=== PATIENT | female | born 1990 ===

== ENCOUNTER 2017-02-14 12:56 | Emergency (ER) | payer MEDICAID ==
[2017-02-14 13:25] VITALS: BMI 26.8
[2017-02-14] MEDS ORDERED: Sodium Chloride 0.9% 1,000 ML IV STA (13:42)
--- NOTE | 2017-02-14 13:45 | ED PDOC ---
Arrival/HPI - General Chief Complaint: Flu-like Symptoms Time Seen by Provider: 02/14/17 13:33 Historian: Patient - History of Present Illness Narrative History of Present Illness (Text): 02/14/17 13:40 26 year old female, whose past medically history includes anemia and asthma, presents to the emergency department complaining of fever, nausea, vomiting, and body aches for the past 3 days. Patient states she was hospitalized 3 years ago for an uncertain stomach infection. She states she took Motrin 1 1/2 hours ago with no relief. Patient also reports constipation and headaches, but denies any chills, chest pain, shortness of breath, diarrhea, urinary symptoms, back pain, neck pain, dizziness, or any other complaints. PMD: Dr. Cruz Past Medical History - Provider Review Nursing Documentation Reviewed: Yes - Infectious Disease Hx of Infectious Diseases: None - Reproductive Menopause: No - Pulmonary Hx Respiratory Disorders: Yes - Hematological/Oncological Hx Anemia: Yes - Psychiatric Hx Substance Use: No - Anesthesia Hx Anesthesia: No Hx Anesthesia Reactions: No Hx Malignant Hyperthermia: No Family/Social History - Physician Review Nursing Documentation Reviewed: Yes Family/Social History: No Known Family HX Smoking Status: Never Smoked Hx Alcohol Use: No Hx Substance Use: No Allergies/Home Meds Allergies/Adverse Reactions: Allergies nut - unspecified Allergy (Verified 02/14/17 13:33) RASH Review of Systems - Physician Review All systems were reviewed & negative as marked: Yes - Review of Systems Respiratory: absent: SOB Cardiovascular: absent: Chest Pain Physical Exam - Physical Exam Narrative Physical Exam (Text): Constitutional: No acute distress. Head: Normocephalic. Atraumatic. Eyes: PERRL. ENT: Moist mucous membranes. Neck: Supple. Cardiovascular: Tachycardia Chest: No tenderness. Respiratory: Clear to auscultation bilaterally. GI: Soft. Nontender. Nondistended. Back: No CVA tenderness. Musculoskeletal: No tenderness or swelling of extremities. Skin: No rash. Neurologic: Alert, no focal deficit. Vital Signs Temp Pulse Resp BP Pulse Ox 02/14/17 15:23 99.0 F 97 H 16 113/69 99 02/14/17 15:02 99.9 F H 02/14/17 14:57 99.9 F H 100 H 16 97 02/14/17 14:02 101.6 F H 02/14/17 13:25 101.6 F H 120 H 20 121/71 99 Medical Decision Making ED Course and Treatment: 02/14/17 13:41 Plan: -- VBG -- EKG -- Labs -- IV Fluids -- Tylenol -- Zofran Inj -- Influenza A B -- HCG, Qualit -- Urinalysis -- Angio Chest PE Protocol CT -- Reassess and disposition Progress Notes: 02/14/17 14:08 EKG shows NSR at [address] elevations. Interpreted by me. 02/14/17 15:24 MPRESSION: No active disease. 02/14/17 18:21 PULMONARY ARTERIES: The visualized portions of the pulmonary trunk, right and left main, lobar, segmental and proximal subsegmental branches of the pulmonary arteries are well opacified with no definitive filling defects seen to suggest acute pulmonary embolus. Pulmonary trunk measures approximately 2.66 cm. HR and temperature normalized. Will discharge home, supportive care, f/u PMD, instructed to return for worsening pain, fever, dyspnea, or any other problem. - Lab Interpretations Lab Results: 02/14/17 13:45 02/14/17 13:45 Lab Results 02/14/17 13:47: D-Dimer, Quantitative 296 H 02/14/17 13:45: Influenza Typ A,B (EIA) Negative for flu a/b 02/14/17 13:45: Sodium 137, Chloride 102, Potassium 3.7, Carbon Dioxide 24, Anion Gap 15, BUN 7, Creatinine 0.7, Est GFR ( Amer) > 60, Est GFR (Non- Af Amer) > 60, Random Glucose 90, Calcium 9.4, Total Bilirubin 0.3, AST 28, ALT 23, Alkaline Phosphatase 78, Total Protein 7.8, Albumin 4.3, Globulin 3.5, Albumin/Globulin Ratio 1.3, Lipase 30 02/14/17 13:45: pO2 47, VBG pH 7.46 H, VBG pCO2 34.0 L, VBG HCO3 24.2, VBG Total CO2 25.2, VBG O2 Sat (Calc) 88.5 H, VBG Base Excess 0.8, VBG Potassium 3.5 L, Sodium 137.0, Chloride 104.0, Glucose 83, Lactate 0.9, FiO2 21.0, Venous Blood Potassium 3.5 L 02/14/17 13:45: Urine Color Yellow, Urine Appearance Sl cloudy, Urine pH 6.5, Ur Specific [place] 1.025, Urine Protein 30 H, Urine Glucose (UA) Negative, Urine Ketones >=80, Urine Blood Moderate H, Urine Nitrate Negative, Urine Bilirubin Negative, Urine Urobilinogen 0.2, Ur Leukocyte Esterase Negative, Urine RBC 1 - 3, Urine WBC Negative, Ur Epithelial Cells 3 - 4, Urine Other Mucus, Urine HCG, Qual Negative 02/14/17 13:45: WBC 8.1, RBC 3.76, Hgb 9.8 L, Hct 30.5 L, MCV 81.1, MCH 26.1, MCHC 32.1, RDW 14.4, Plt Count 161, MPV 10.4, Gran % 81.2 H, Lymph % (Auto) 10.0 L, [place] % (Auto) 8.6 H, Eos % (Auto) 0.0 L, Baso % (Auto) 0.2, Gran # 6.54 H, Lymph # 0.8 L, [place] # 0.7 H, Eos # 0.0, Baso # 0.02 I have reviewed the lab results: Yes - RAD Interpretation Radiology Orders: 02/14/17 13:43 CHEST TWO VIEWS (PA/LAT) [RAD] Stat 02/14/17 14:50 ANGIO CHEST PE PROTOCOL [CT] Stat - EKG Interpretation Interpreted by ED Physician: Yes Type: 12 lead EKG - Medication Orders Current Medication Orders: Discontinued Medications Acetaminophen (Tylenol 325mg Tab) 975 mg PO STAT STA Stop: 02/14/17 13:43 Last Admin: 02/14/17 14:02 Dose: 975 mg [facility] Pain/Vitals Document 02/14/17 14:02 HI (Rec: 02/14/17 14:02 ME [id number]) Pain Reassessment Is This A Pain ReAssessment? No Sleep Is patient sleeping during reassessment? No Presence of Pain Presence of Pain No Vitals Temperature (97.6 F-99.6 F) 101.6 F Re-Assess: JUANA Pain/Vitals Document 02/14/17 15:02 HI (Rec: 02/14/17 15:45 ME [id number]) Pain Reassessment Is This A Pain ReAssessment? No Sleep Is patient sleeping during reassessment? No Presence of Pain Presence of Pain No Vitals Temperature (97.6 F-99.6 F) 99.9 F Temperature Source Oral Sodium Chloride (Sodium Chloride 0.9%) 1,000 mls @ 999 mls/hr IV .Q1H1M STA Stop: 02/14/17 14:42 Last Admin: 02/14/17 14:01 Dose: 999 mls/hr eMAR Start Stop Document 02/14/17 14:01 HI (Rec: 02/14/17 14:01 ME [id number]) Intravenous Solution Start Date 02/14/17 Start Time 14:01 Ondansetron HCl (Zofran Inj) 8 mg IVP STAT STA Stop: 02/14/17 13:43 Last Admin: 02/14/17 14:01 Dose: 8 mg IVP Administration Document 02/14/17 14:01 HI (Rec: 02/14/17 14:01 ME [id number]) Charges for Administration # of IVP Administrations 1 - Scribe Statement The provider has reviewed the documentation as recorded by the [place] Provider Scribe Attestation: All medical record entries made by the Scribraz were at my direction and personally dictated by me. I have reviewed the chart and agree that the record accurately reflects my personal performance of the history, physical exam, medical decision making, and the department course for this patient. I have also personally directed, reviewed, and agree with the discharge instructions and disposition. Disposition/Present on Arrival - Present on Arrival Any Indicators Present on Arrival: No History of DVT/PE: No History of Uncontrolled Diabetes: No Urinary Catheter: No History of Decub. Ulcer: No History Surgical Site Infection Following: None - Disposition Have Diagnosis and Disposition been Completed?: Yes Diagnosis: Influenza-like illness Disposition: HOME/ ROUTINE Disposition Time: 18:13 Patient Plan: Discharge Patient Problems: Current Active Problems Problem Status Onset Influenza-like illness Acute Condition: STABLE Discharge Instructions (ExitCare): Viral Syndrome (ED) Prescriptions: Acetaminophen [Tylenol 325mg tab] 2 tab PO Q4H #30 tab Ibuprofen [Motrin] 1 tab PO Q6 #30 tab Polyethylene Glycol 3350 [Miralax] 17 gm PO DAILY #238 gm Referrals: Magdalena Cruz [Primary Care Provider] - Follow up with primary Forms: [employer] ([place]an)
[2017-02-14 14:05] LABS: BASO # 0.02 K/mm3 (0.0-2.0); BASO % 0.2 % (0.0-3.0); GRAN # 6.54 (1.4-6.5); GRAN % 81.2 % (50.0-68.0); HEMOGLOBIN 9.8 g/dL (12.0-16.0); LYMPH # 0.8 (1.2-3.4); MEAN CELL VOLUME 81.1 fl (80.0-105.0); MEAN CORPUSCULAR HEMOGLOBIN 26.1 pg (25.0-35.0); MEAN CORPUSCULAR HGB CONC 32.1 g/dl (31.0-37.0); MEAN PLATELET VOLUME 10.4 fl (7.0-11.0); MONO # 0.7 (0.1-0.6); MONO % 8.6 % (1.0-6.0); PH,URINE 6.5 (4.7-8.0); RBC 3.76 10^6/uL (3.5-6.1); RED CELL DISTRIBUTION WIDTH 14.4 % (11.5-14.5); URINE BILIRUBIN NEGATIVE (NEGATIVE); URINE BLOOD MODERATE (NEGATIVE); URINE GLUCOSE (UA) NEGATIVE (NEGATIVE); URINE LEUKOCYTE ESTERASE NEGATIVE Leu/uL (NEGATIVE); URINE NITRATE NEGATIVE (NEGATIVE); URINE PROTEIN 30 mg/dL (<30 mg/dL); URINE UROBILINOGEN 0.2 E.U./dL (<1 E.U./dL); VENOUS BLOOD GAS BASE EXCESS 0.8 mmol/L (0.0-2.0); VENOUS BLOOD GAS PO2 47 mm/Hg (30-55); VENOUS BLOOD PH 7.46 (7.32-7.43); WHITE BLOOD COUNT 8.1 10^3/ul (4.5-11.0)
[2017-02-14 14:10] LABS: URINE APPEARANCE SL CLOUDY (CLEAR); URINE COLOR YELLOW (YELLOW)
[2017-02-14 14:11] LABS: HCG,QUALITATIVE URINE NEGATIVE (NEGATIVE)
[2017-02-14 14:13] LABS: ALB/GLOB RATIO 1.3 (1.1-1.8); ALBUMIN 4.3 g/dL (3.0-4.8); ALT/SGPT 23 U/L (7-56); AST/SGOT 28 U/L (14-36); BLOOD UREA NITROGEN 7 mg/dL (7-21); CALCIUM 9.4 mg/dL (8.4-10.5); GFR AFRICAN-AMERICAN > 60; GFR NON-AFRICAN AMERICAN > 60; LIPASE 30 U/L (23-300)
[2017-02-14 14:21] LABS: URINE WBC NEGATIVE /hpf (0-6)
[2017-02-14] MEDS ORDERED: Iodixanol 320 MG/ML 100 ML BOTTLE IV ONE (14:54)
[2017-02-14 15:03] VITALS: RESP 16
--- NOTE | 2017-02-14 15:23 | RAD ---
HISTORY: fever COMPARISON: No prior. TECHNIQUE: Chest PA and lateral FINDINGS: LUNGS: No active pulmonary disease. PLEURA: No significant pleural effusion identified. No pneumothorax apparent. CARDIOVASCULAR: Normal. OSSEOUS STRUCTURES: No significant abnormalities. VISUALIZED UPPER ABDOMEN: Normal. OTHER FINDINGS: None. IMPRESSION: No active disease.
[2017-02-14 15:25] VITALS: TEMP 99
--- NOTE | 2017-02-14 15:33 | CARD ---
APPROVED REPORT EKG Measurement Heart [id number] <Conclusion> Normal sinus rhythm T wave abnormality, consider anterior ischemia Abnormal ECG
--- NOTE | 2017-02-14 18:08 | CT ---
PROCEDURE: CT Chest with contrast (Pulmonary Angiogram) HISTORY: Tachycardia. Rule out PE COMPARISON: None available. TECHNIQUE: Contiguous helical/transaxial computed tomography images were obtained of the chest in the pulmonary arterial phase of enhancement. Coronal and sagittal reformatted images were created and reviewed. Intravenous contrast dose: 100 cc Omnipaque 350 contrast material Radiation dose: Total exam DLP = 221.46 alexsander mGy-cm. This CT exam was performed using one or more of the following dose reduction techniques: Automated exposure control, adjustment of the mA and/or kV according to patient size, and/or use of iterative reconstruction technique. FINDINGS: PULMONARY ARTERIES: The visualized portions of the pulmonary trunk, right and left main, lobar, segmental and proximal subsegmental branches of the pulmonary arteries are well opacified with no definitive filling defects seen to suggest acute pulmonary embolus. Pulmonary trunk measures approximately 2.66 cm. AORTA: No acute findings. No thoracic aortic aneurysm. Ascending thoracic aorta measures approximately 2.46 cm and descending thoracic aorta measures approximately 1.8 cm. . The left vertebral artery takes its origin from the proximal left subclavian artery possibly representing a common trunk . LUNGS: Unremarkable. No nodule, mass or pulmonary consolidation. PLEURAL SPACES: Unremarkable. No effusion or pneumothorax. HEART: Heart appears within the range of normal. No evidence of significant pericardial effusion. . LYMPH NODES: No significant mediastinal or hilar adenopathy. Multiple small bilateral axillary lymph nodes are present. BONES, CHEST WALL: Unremarkable. No fracture or destructive lesion OTHER FINDINGS: Unremarkable. IMPRESSION: No evidence of acute central pulmonary embolus.
[2017-02-14 19:24] VITALS: BP 115/78; PULSE 90; O2SAT 100
== END 2017-02-14 18:38 | disposition home or self-care (01) ==
LOC: ED 12:56
DX: J11.1 Influenza due to unidentified influenza virus with other respiratory manifestations (principal)
CPT/HCPCS: 71046; 71275; 80053; 81001; 82803; 83690; 84703; 85025; 85378; 87804; 93005; 96374; 99284; J2405; J7040; Q9967